=== PATIENT | female | born 1985 | race Caucasian/White ===

== ENCOUNTER 2024-04-27 10:44 | Observation (INO) ==
[2024-04-27] MEDS ORDERED: oxyCODONE SR 10 mg TAB ONE (11:48)
[2024-04-27] MEDS ORDERED: Clindamycin 900 MG/50 **NS BAG 900 MG/50 ML BAG ONE (11:49)
[2024-04-27] MEDS ORDERED: Ondansetron 4 mg VIAL 2 MG/ML 2 ml VIAL ONE ×2 (11:49→15:56)
[2024-04-27] MEDS ORDERED: Scopolamine 1 mg/72hr PATCH ONE (11:49)
[2024-04-27 12:26] LABS: ABS Eosinophils 0.1 10^3/uL (0.0-0.5); ABS Lymphocytes 1.1 10^3/uL (1.0-4.8); ABS Monocytes 0.3 10^3/uL (0.0-0.9); ABS Neutrophils 2.7 10^3/uL (1.5-7.6); Eosinophil % 1.3 %; Hematocrit 39.3 % (35-45); Hemoglobin 13.5 g/dL (11.5-14.3); Lymphocyte % 25.2 %; Mean Corpuscular Hemoglobin 32.8 pg (27-33); Mean Corpuscular Hgb Conc 34.3 g/dL (31-36); Mean Corpuscular Volume 95.8 fL (80-97); Mean Platelet Volume 8.5 fL (7.5-11.2); Nucleated Red Blood Cells % 0.1 %/100WBC (0.0-0.8); Platelet Count 250 10^3/uL (150-450); Red Cell Distribution Width 13.8 % (12-17); White Blood Count 4.2 10^3/uL (3.8-11.8)
[2024-04-27 12:36] LABS: INR 1.07 (0.85-1.14)
[2024-04-27 13:12] LABS: Anion Gap 5 mmol/L (2-16); Blood Urea Nitrogen 9 mg/dL (6-24); CO2 Carbon Dioxide 24 mmol/L (22-32); Calcium 8.8 mg/dL (8.6-10.3); Chloride 103 mmol/L (101-111); Glucose 80 mg/dL (70-100); HCG Pregnancy < 0.60 mIU/mL; Sodium 132 mmol/L (135-145); eGFR CKD-EPI 115.6 (>60)
[2024-04-27] MEDS ORDERED: nitroGLYCERIN DRIP 25,000 MCG/250 ML BTL ONE (13:32)
[2024-04-27] MEDS ORDERED: Iohexol 350 (CONTRAST) 100 ML PAK IV ONE (13:32)
[2024-04-27] MEDS ORDERED: Heparin 2 UNITS/ML IVPREMIX 1,000 UNIT/500 ML BAG IV ONE (13:32)
[2024-04-27] MEDS ORDERED: Lidocaine 1% VIAL 10 MG/ML 30 ML VIAL ONE (13:32)
[2024-04-27] MEDS ORDERED: Heparin 2 UNITS/ML 1000 mls 1,000 ML IV ONE (13:32)
[2024-04-27] MEDS ORDERED: fentaNYL 100 mcg/2 ml 50 MCG/ML VIAL ONE (13:55)
[2024-04-27] MEDS ORDERED: Midazolam 5 mg/5 ml VIAL 1 mg/ml 5 ml VIAL (5 mg) ONE (13:55)
[2024-04-27] MEDS ORDERED: Flumazenil 0.5 mg/5 ml 0.1 MG/ML 5 ml VIAL IV PRN (13:57)
[2024-04-27] MEDS ORDERED: Naloxone 0.4 mg VIAL 0.4 mg/ml 1 ml VIAL IV PUSH PRN (13:57)
[2024-04-27] MEDS: Midazolam 10 mg/10 ml VIAL 1 mg/ml 10 ml VIAL (10 mg) IV SLOW PU ONE (14:05)
[2024-04-27] MEDS: fentaNYL 100 mcg/2 ml 50 MCG/ML VIAL IV SLOW PU ONE (14:05)
[2024-04-27 14:14] LABS: Activated Partial Thrombo Time 28.1 seconds (26.0-38.0)
[2024-04-27] MEDS ORDERED: HYDROmorphone 0.5 MG/0.5 ML SYRINGE ONE (15:09)
[2024-04-27] MEDS: NS 0.9% 1,000 ML IV SCH (15:45)
[2024-04-27] MEDS ORDERED: HYDROmorphone 1 MG/1 ML SYRINGE ONE (15:53)
[2024-04-27] MEDS: HYDROmorphone 1 MG/1 ML SYRINGE IV SLOW PU PRN (15:59)
[2024-04-27] MEDS: Ondansetron 4 mg VIAL 2 MG/ML 2 ml VIAL IV SCH (22:14)
[2024-04-27] MEDS: Heparin 5000 UNITS/ML 1 mL VIAL SUBCUT SCH (22:40)
[2024-04-28 06:52] LABS: Calcium 8.1 mg/dL (8.6-10.3); Creatinine, Serum 0.56 mg/dL (0.51-0.95); Magnesium 1.9 mg/dL (1.9-2.7); Potassium 4.4 mmol/L (3.5-5.0); eGFR CKD-EPI 117.5 (>60)
[2024-04-28] MEDS ORDERED: HYDROcodone/ACETAMIN 5/325 mg TAB PO PRN (09:20)
[2024-04-28 09:52] VITALS: BP 126/80
[2024-04-28] MEDS: Cholecalciferol (VIT D3) 1,000 unit TAB PO SCH (10:12)
[2024-04-28] MEDS: Ketorolac 10 mg TAB (NF) PO SCH (10:12)
[2024-04-28] MEDS ORDERED: Calcium (OSCAL) 500 mg TAB PO SCH (12:00)
== END 2024-04-28 11:13 | disposition home or self-care (01) ==
LOC: CHICATH 10:44 → SSU 10:44 → SUATTDRO 17:20
PROVIDERS: ADMIT Radiology Diagnostic Radiology; ATTEND Student in an Organized Health Care Education/Training Program
PROC: ANG.UFE (2024-04-27 12:15)